=== PATIENT | female | born 1955 | race Caucasian/White ===

== ENCOUNTER 2016-11-28 08:58 | Emergency (ER) | payer SELFPAY ==
[2016-11-28] MEDS ORDERED: KETOROLAC 60 MG/2 ML VIAL IM ONE (11:29)
== END 2016-11-28 12:44 | disposition home or self-care (01) ==
LOC: ER 08:58
DX: S29.012A Strain of muscle and tendon of back wall of thorax, initial encounter (principal); S29.011A Strain of muscle and tendon of front wall of thorax, initial encounter; S20.211A Contusion of right front wall of thorax, initial encounter; W01.0XXA Fall on same level from slipping, tripping and stumbling without subsequent striking against object, initial encounter; Y92.009 Unspecified place in unspecified non-institutional (private) residence as the place of occurrence of the external cause
CPT/HCPCS: 81001; 96372